=== PATIENT | female | born 1940 | race Caucasian/White ===

== ENCOUNTER 2024-06-09 14:13 | Outpatient (REF) | payer MEDICARE, SELFPAY ==
[2024-06-09 17:35] LABS: Erythrocyte Sedimentation Rate 14 MM/HR (0-20)
[2024-06-10 22:18] LABS: Lyme Abs Screen <0.90 index
== END 2024-06-09 14:14 | disposition home or self-care (01) ==
LOC: HO.LAB 14:13
PROVIDERS: PCP Family Medicine; Visit Provider Psychiatry & Neurology Neurology
DX: G43.009 Migraine without aura, not intractable, without status migrainosus (principal)
CPT/HCPCS: 36415; 85652; 86617; 86618